=== PATIENT | male | born 1930 | race Caucasian/White ===

== ENCOUNTER 2018-07-02 20:33 | Emergency (ER) | payer BC ==
[~2018-07-02] VITALS: Ht 190.5 cm; Wt 102.1 kg
[~2018-07-02 20:33] MED LIST: ACYCLOVIR 800800 MG PO; BACTRIM DS TAB1 EACH; CENTRUM COMPLE1 EACH PO; CIPROFLOXACIN500 M1 PO; DIGOXIN250 MCG PO; FAMVIR250 MG PO; FLOMAX0.4 MG PO; LEVAQUIN 250 M250 MG PO; LEVAQUIN 500 M500 M2 PO; LO-DOSE ASPIRIN81 M1 PO; MINOCIN100 MG PO; MOMETASONE FURO45 G1 TP; NYSTATIN15 GM TP; OTC CHOLESTEROL MED PO; PREDNISONE50 MG PO; TAMSULOSIN HCL0.4 M1 PO; VICODIN ES TAB1 EACH
[2018-07-02 20:50] VITALS: BP 143/65
[2018-07-02] MEDS ORDERED: CLEOCIN HCL150 MG PO (21:05)
== END 2018-07-02 21:25 | disposition home or self-care (01) ==
LOC: M.ERS 20:33
DX: L03.111 Cellulitis of right axilla (principal); Z88.8 Allergy status to other drugs, medicaments and biological substances; Z85.038 Personal history of other malignant neoplasm of large intestine

== ENCOUNTER 2019-04-02 10:28 | Inpatient (IN) | payer BC ==
[~2019-04-02] VITALS: Ht 190.5 cm; Wt 110.2 kg
[~2019-04-02 10:28] MED LIST changes: +CLEOCIN HCL150 MG PO
[2019-04-02 10:32] VITALS: BP 143/75
[2019-04-02 12:02] LABS: ABSOLUTE BASOPHILS 0.1 thou/uL (0.0-0.2); ABSOLUTE EOSINOPHILS 0.4 thou/uL (0.0-0.7); ABSOLUTE LYMPHOCYTES 1.3 thou/uL (0.8-5.3); ABSOLUTE MONOCYTES 0.6 thou/uL (0.0-1.2); ABSOLUTE NEUTROPHILS 4.1 thou/uL (1.6-8.1); BASOPHILS 0.8 %; EOSINOPHILS 6.2 %; HEMATOCRIT 40.4 % (42.0-52.0); HEMOGLOBIN 13.7 gm/dL (14.0-18.0); LYMPHOCYTES 20.6 %; MCH 33.2 pg (26.0-34.0); MCV 97.6 fL (80.0-100.0); MONOCYTES 8.6 %; MPV 8.4 fl. (7.2-11.1); NUCLEATED RBCS 0 /100WBC; PLATELET COUNT* 145 thou/uL (150-400); POLYS 63.8 %; RBC 4.14 mil/uL (4.50-6.00); RDW-CV 13.9 % (10.5-14.5); WBC 6.4 thou/uL (4.0-11.0)
[2019-04-02 12:21] LABS: APTT 24.6 Seconds (25.0-31.3); INR 1.1; PROTIME 11.1 Seconds (9.20-11.50)
[2019-04-02 12:23] LABS: ANION GAP 7 mmol/L (7-16); BUN 18 mg/dL (7-18); CHLORIDE 106 mmol/L (98-107); CO2 25 mmol/L (21-32); GLUCOSE 90 mg/dL (70-99); POTASSIUM 4.7 mmol/L (3.5-5.1); SODIUM 138 mmol/L (136-145)
[2019-04-02 12:35] LABS: ALBUMIN 3.4 g/dL (3.4-5.0); ALKALINE PHOSPHATASE 67 U/L (46-116); NT-PRO BRAIN NAT PEPTIDE 333 pg/mL (<300); SGOT 28 U/L (15-37); SGPT 29 U/L (30-65); TOTAL BILIRUBIN 0.5 mg/dL (<0.1-1.0); TROPONIN-I LEVEL <0.06 ng/mL (<0.06)
[2019-04-02 13:07] VITALS: BP 150/70
--- NOTE | 2019-04-02 15:03 | EKG ---
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: : 1930 Requested By: Ronaldo West Order Number: [id number] MD: Codey Mccullough Measurements Intervals [place] Rate: 72 P: 13 VT: 151 QRS: 10 QRSD: 91 T: 33 QT: 409 QTc: 448 Interpretive Statements Sinus rhythm Probable left atrial enlargement Compared to ECG 04/02/2017 02:28:15 No significant changes Electronically Signed On 04-02-2019 15:03:05 CDT by Codey Mccullough [email or web address] <ELECTRONICALLY SIGNED> By: Codey Mccullough MD, [facility] 04/02/19 1503 1115 1115 Codey Mccullough MD, [facility] /EPI
[2019-04-02 17:41] VITALS: BP 112/82
[2019-04-02 20:00] VITALS: BP 133/70
[2019-04-03 04:40] LABS: ABSOLUTE EOSINOPHILS 0.5 thou/uL (0.0-0.7); ABSOLUTE LYMPHOCYTES 1.5 thou/uL (0.8-5.3); ABSOLUTE MONOCYTES 0.6 thou/uL (0.0-1.2); ABSOLUTE NEUTROPHILS 3.4 thou/uL (1.6-8.1); BASOPHILS 0.6 %; EOSINOPHILS 7.8 %; HEMATOCRIT 40.8 % (42.0-52.0); HEMOGLOBIN 13.3 gm/dL (14.0-18.0); LYMPHOCYTES 24.9 %; MCH 32.3 pg (26.0-34.0); MCHC 32.7 g/dL (28.0-37.0); MCV 98.8 fL (80.0-100.0); MONOCYTES 9.6 %; MPV 8.5 fl. (7.2-11.1); NUCLEATED RBCS 0 /100WBC; PLATELET COUNT* 142 thou/uL (150-400); POLYS 57.1 %; RBC 4.13 mil/uL (4.50-6.00); RDW-CV 13.8 % (10.5-14.5)
[2019-04-03 04:47] LABS: CALCIUM 8.6 mg/dL (8.5-10.1); CREATININE 1.1 mg/dL (0.6-1.3); POTASSIUM 4.4 mmol/L (3.5-5.1)
[2019-04-03 09:40] VITALS: BP 118/62
[2019-04-03 13:01] VITALS: BP 133/70
[2019-04-03] MEDS ORDERED: XARELTO15 MG PO (13:14)
[2019-04-03 13:19] VITALS: BP 133/70
== END 2019-04-03 14:20 | disposition home or self-care (01) | DRG 300 ==
LOC: M.ERS 10:28 → M.ORTHSURG 11:52 → M.TBA-ER 11:52 → M.ORTHSURG 13:02
PROVIDERS: Family Medicine; ADMIT Internal Medicine
DX: I82.412 Acute embolism and thrombosis of left femoral vein (principal); D68.59 Other primary thrombophilia; I82.432 Acute embolism and thrombosis of left popliteal vein; Z85.038 Personal history of other malignant neoplasm of large intestine; Z95.1 Presence of aortocoronary bypass graft; Z87.891 Personal history of nicotine dependence; Z79.82 Long term (current) use of aspirin; Z79.899 Other long term (current) drug therapy; Z88.8 Allergy status to other drugs, medicaments and biological substances; Z83.3 Family history of diabetes mellitus; Z82.49 Family history of ischemic heart disease and other diseases of the circulatory system

== ENCOUNTER 2020-07-09 08:10 | Emergency (ER) | payer BC ==
[~2020-07-09] VITALS: Ht 190.5 cm; Wt 106.1 kg
[~2020-07-09 08:10] MED LIST changes: +XARELTO15 MG PO
[2020-07-09 08:46] LABS: URINE BILIRUBIN NEGATIVE (Negative); URINE BLOOD 3+ (Negative); URINE CLARITY CLEAR; URINE COLOR YELLOW; URINE GLUCOSE-RANDOM NEGATIVE (Negative); URINE KETONES NEGATIVE (Negative); URINE LEUKOCYTES-REFLEX NEGATIVE (Negative); URINE NITRITE-REFLEX NEGATIVE (Negative); URINE PROTEIN NEGATIVE (Negative); URINE SPECIFIC GRAVITY >= 1.030 (1.005-1.030); URINE UROBILINOGEN 0.2 E.U./dl (0.2-1.0)
[2020-07-09 08:56] LABS: ABSOLUTE EOSINOPHILS 0.2 thou/uL (0.0-0.7); ABSOLUTE MONOCYTES 0.4 thou/uL (0.0-1.2); ABSOLUTE NEUTROPHILS 3.8 thou/uL (1.6-8.1); BASOPHILS 0.7 %; HEMATOCRIT 42.4 % (42.0-52.0); HEMOGLOBIN 14.4 gm/dL (14.0-18.0); LYMPHOCYTES 18.1 %; MCH 32.9 pg (26.0-34.0); MCHC 33.9 g/dL (28.0-37.0); MCV 97.3 fL (80.0-100.0); MONOCYTES 7.7 %; MPV 8.1 fl. (7.2-11.1); NUCLEATED RBCS 0 /100WBC; PLATELET COUNT* 142 thou/uL (150-400); POLYS 70.5 %; RBC 4.36 mil/uL (4.50-6.00); RDW-CV 13.7 % (10.5-14.5); WBC 5.3 thou/uL (4.0-11.0)
[2020-07-09 09:07] LABS: CALCIUM 8.5 mg/dL (8.5-10.1); CREATININE 1.1 mg/dL (0.6-1.3); POTASSIUM 4.2 mmol/L (3.5-5.1)
[2020-07-09 09:11] LABS: MUCUS 0-3 Light strn/LPF (None Seen); SQUAMOUS 0-3 Few /LPF (0-3); URINE WBC-REFLEX 0-5 Rare /HPF (0-5)
[2020-07-09 09:12] LABS: CASTS None Seen /LPF (None Seen); CRYSTALS None Seen /LPF (None Seen)
[2020-07-09 09:12] LABS: ALBUMIN 3.3 g/dL (3.4-5.0); TOTAL BILIRUBIN 0.6 mg/dL (<0.1-1.0)
[2020-07-09] MEDS ORDERED: IBUPROFEN 800800 MG PO (10:20)
[2020-07-09] MEDS ORDERED: NORCO 5-325 TA1 EAC2 PO (10:20)
[2020-07-09] MEDS ORDERED: CIPROFLOXACIN500 M1 PO (10:20)
[2020-07-09] MEDS ORDERED: FLOMAX0.4 MG PO (10:20)
[2020-07-09 10:52] VITALS: BP 144/70
--- NOTE | 2020-07-10 15:09 | EKG ---
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
== END 2020-07-09 10:53 | disposition home or self-care (01) ==
LOC: M.ERS 08:10
PROVIDERS: Family Medicine
DX: N20.0 Calculus of kidney (principal); Z87.891 Personal history of nicotine dependence; Z95.1 Presence of aortocoronary bypass graft; Z86.718 Personal history of other venous thrombosis and embolism; Z85.038 Personal history of other malignant neoplasm of large intestine; Z88.8 Allergy status to other drugs, medicaments and biological substances

== ENCOUNTER 2020-08-18 17:14 | Emergency (ER) | payer BC ==
[~2020-08-18] VITALS: Ht 190.5 cm; Wt 104.3 kg
[~2020-08-18 17:14] MED LIST changes: +IBUPROFEN 800800 MG PO; +NORCO 5-325 TA1 EAC2 PO
[2020-08-18 17:32] VITALS: BP 164/68
[2020-08-18] MEDS ORDERED: CENTRUM ULTRA1 EAC1 PO (17:34)
[2020-08-18] MEDS ORDERED: ASA81BEC PO (17:34)
== END 2020-08-18 19:18 | disposition home or self-care (01) ==
LOC: M.ERS 17:14
DX: I80.01 Phlebitis and thrombophlebitis of superficial vessels of right lower extremity (principal); Z95.1 Presence of aortocoronary bypass graft; Z87.891 Personal history of nicotine dependence; Z79.899 Other long term (current) drug therapy; Z79.82 Long term (current) use of aspirin; Z91.048 Other nonmedicinal substance allergy status

== ENCOUNTER 2020-12-12 18:27 | Emergency (ER) | payer BC ==
[~2020-12-12] VITALS: Ht 190.5 cm; Wt 99.8 kg
[~2020-12-12 18:27] MED LIST changes: +ASA81BEC PO; +CENTRUM ULTRA1 EAC1 PO
[2020-12-12] MEDS ORDERED: CENTANY30 GM TOP (19:37)
[2020-12-12] MEDS ORDERED: DOXYCYCLINE 10100 MG PO (19:37)
[2020-12-12 19:44] VITALS: BP 141/54
== END 2020-12-12 19:45 | disposition home or self-care (01) ==
LOC: M.ERS 18:27
DX: S80.811A Abrasion, right lower leg, initial encounter (principal); L08.9 Local infection of the skin and subcutaneous tissue, unspecified; Z87.891 Personal history of nicotine dependence; Z88.8 Allergy status to other drugs, medicaments and biological substances; Z95.1 Presence of aortocoronary bypass graft; Z85.038 Personal history of other malignant neoplasm of large intestine; Z86.718 Personal history of other venous thrombosis and embolism; W18.39XA Other fall on same level, initial encounter; Y93.89 Activity, other specified; Y92.89 Other specified places as the place of occurrence of the external cause; Y99.8 Other external cause status

== ENCOUNTER 2020-12-20 12:13 | Emergency (ER) | payer BC ==
[~2020-12-20] VITALS: Ht 190.5 cm; Wt 99.8 kg
[~2020-12-20 12:13] MED LIST changes: +CENTANY30 GM TOP; +DOXYCYCLINE 10100 MG PO
[2020-12-20] MEDS ORDERED: DOXYCYCLINE 10100 MG PO (13:47)
[2020-12-20 13:58] VITALS: BP 114/47
== END 2020-12-20 13:59 | disposition home or self-care (01) ==
LOC: M.ERS 12:13
DX: S81.811D Laceration without foreign body, right lower leg, subsequent encounter (principal); Z79.82 Long term (current) use of aspirin; Z86.718 Personal history of other venous thrombosis and embolism; Z95.1 Presence of aortocoronary bypass graft; Z85.038 Personal history of other malignant neoplasm of large intestine; X58.XXXD Exposure to other specified factors, subsequent encounter

== ENCOUNTER 2021-01-02 18:30 | Emergency (ER) | payer BC ==
[~2021-01-02] VITALS: Ht 190.5 cm; Wt 99.8 kg
[2021-01-02 19:52] VITALS: BP 121/72
== END 2021-01-02 19:52 | disposition home or self-care (01) ==
LOC: M.ERS 18:30
DX: S81.811D Laceration without foreign body, right lower leg, subsequent encounter (principal); G62.9 Polyneuropathy, unspecified; Z87.891 Personal history of nicotine dependence; Z79.82 Long term (current) use of aspirin; Z79.899 Other long term (current) drug therapy; Z95.1 Presence of aortocoronary bypass graft; Z86.718 Personal history of other venous thrombosis and embolism; Z85.038 Personal history of other malignant neoplasm of large intestine

== ENCOUNTER 2021-07-02 01:31 | Inpatient (IN) | payer BC ==
[~2021-07-02] VITALS: Ht 190.5 cm; Wt 112.9 kg
[2021-07-02 01:49] VITALS: BP 130/67
[2021-07-02 02:11] LABS: INFLUENZA A ANTIGEN Negative (Negative); INFLUENZA B ANTIGEN Negative (Negative)
[2021-07-02 02:14] LABS: ABSOLUTE EOSINOPHILS 0.1 thou/uL (0.0-0.7); ABSOLUTE LYMPHOCYTES 0.7 thou/uL (0.8-5.3); ABSOLUTE MONOCYTES 0.5 thou/uL (0.0-1.2); ABSOLUTE NEUTROPHILS 6.1 thou/uL (1.6-8.1); BASOPHILS 0.5 %; EOSINOPHILS 0.8 %; HEMATOCRIT 40.1 % (42.0-52.0); HEMOGLOBIN 13.7 gm/dL (14.0-18.0); MCH 32.8 pg (26.0-34.0); MCHC 34.2 g/dL (28.0-37.0); MCV 95.7 fL (80.0-100.0); MONOCYTES 6.7 %; MPV 8.1 fl. (7.2-11.1); NUCLEATED RBCS 0 /100WBC; PLATELET COUNT* 170 thou/uL (150-400); RBC 4.19 mil/uL (4.50-6.00); RDW-CV 13.3 % (10.5-14.5); WBC 7.3 thou/uL (4.0-11.0)
[2021-07-02 02:21] LABS: CALCIUM 8.9 mg/dL (8.5-10.1); CREATININE 1.1 mg/dL (0.6-1.3); POTASSIUM 4.5 mmol/L (3.5-5.1)
[2021-07-02 02:25] LABS: TOTAL BILIRUBIN 0.7 mg/dL (<0.1-1.0); TOTAL PROTEIN 7.1 g/dL (6.4-8.2)
[2021-07-02 07:09] VITALS: BP 128/74
[2021-07-02 08:00] VITALS: BP 119/66
[2021-07-02 11:30] VITALS: BP 122/54
[2021-07-02 17:48] VITALS: BP 132/95
[2021-07-02 20:00] VITALS: BP 130/48
[2021-07-03] VITALS: BP 112/50
[2021-07-03 04:00] VITALS: BP 141/78
[2021-07-03 05:57] LABS: HEMATOCRIT 40.2 % (42.0-52.0); HEMOGLOBIN 13.8 gm/dL (14.0-18.0); MCH 32.9 pg (26.0-34.0); MCHC 34.2 g/dL (28.0-37.0); MCV 96.1 fL (80.0-100.0); NUCLEATED RBCS 0 /100WBC; PLATELET COUNT* 182 thou/uL (150-400); RBC 4.18 mil/uL (4.50-6.00); RDW-CV 13.4 % (10.5-14.5); WBC 8.4 thou/uL (4.0-11.0)
[2021-07-03 06:33] LABS: ALBUMIN 2.8 g/dL (3.4-5.0); CALCIUM 8.7 mg/dL (8.5-10.1); POTASSIUM 4.2 mmol/L (3.5-5.1); TOTAL BILIRUBIN 0.7 mg/dL (<0.1-1.0); TOTAL PROTEIN 6.8 g/dL (6.4-8.2)
[2021-07-03 07:23] LABS: ABSOLUTE LYMPHOCYTES 0.7 thou/uL (0.8-5.3); ABSOLUTE MONOCYTES 0.5 thou/uL (0.0-1.2); ABSOLUTE NEUTROPHILS 7.2 thou/uL (1.6-8.1)
[2021-07-03 07:24] LABS: PLATELET ESTIMATE ADEQUATE
[2021-07-03 08:00] VITALS: BP 148/73
[2021-07-03 10:10] LABS: ABSOLUTE LYMPHOCYTES 0.4 thou/uL (0.8-5.3); ABSOLUTE MONOCYTES 0.4 thou/uL (0.0-1.2); BASOPHILS 0.2 %; EOSINOPHILS 0.1 %; HEMATOCRIT 38.7 % (42.0-52.0); HEMOGLOBIN 13.3 gm/dL (14.0-18.0); LYMPHOCYTES 4.2 %; MCH 32.8 pg (26.0-34.0); MCHC 34.4 g/dL (28.0-37.0); MCV 95.2 fL (80.0-100.0); MONOCYTES 3.6 %; MPV 7.9 fl. (7.2-11.1); NUCLEATED RBCS 0 /100WBC; PLATELET COUNT* 179 thou/uL (150-400); POLYS 91.9 %; RBC 4.06 mil/uL (4.50-6.00); RDW-CV 13.1 % (10.5-14.5); WBC 9.8 thou/uL (4.0-11.0)
[2021-07-03 10:23] LABS: ALBUMIN 2.6 g/dL (3.4-5.0); CALCIUM 8.3 mg/dL (8.5-10.1); POTASSIUM 3.9 mmol/L (3.5-5.1); TOTAL BILIRUBIN 0.8 mg/dL (<0.1-1.0); TOTAL PROTEIN 6.4 g/dL (6.4-8.2)
[2021-07-03 12:10] VITALS: BP 101/58
--- NOTE | 2021-07-03 12:15 | EKG ---
[place] [address] ELECTROCARDIOGRAM REPORT Name: TANYA KRAUS Room: [address] ADM IN ..#: [id number] Admission: 07/02/21 Attend Phys: Hawk Claros, Discharge: Date of : 34 Date of Service: 07/02/21 0157 Report #: [id number] THIS REPORT FOR: //name// [facility] ED Test Date: 2021-07-02 Test Time: 01:57:52 Pat Name: TANYA KRAUS Department: Room: [facility] Gender: M E Commerce Architect: [facility] : 1930 Requested By: Anayeli Diallo Order Number: [id number] MD: Prosper Tuttle Measurements Intervals [place] Rate: 98 P: 44 UT: 148 QRS: 23 QRSD: 79 T: 18 QT: 334 QTc: 427 Interpretive Statements Sinus rhythm Probable left atrial enlargement Borderline low voltage, extremity leads Compared to ECG 07/09/2020 08:40:32 No significant changes Electronically Signed On 07-03-2021 12:15:29 STRAIGHT LINE PRESS SETTER by Prosper Tuttle [email or web address] <ELECTRONICALLY SIGNED> By: Prosper Tuttle MD, [facility] 07/03/21 1215 0157 015 Prosper Tuttle MD, [facility] /EPI
[2021-07-03 16:04] VITALS: BP 118/85
[2021-07-03 20:01] VITALS: BP 120/52
[2021-07-04] VITALS (7 sets, daily range): BP systolic 121–157; BP diastolic 57–80
[2021-07-05] VITALS (7 sets, daily range): BP systolic 112–150; BP diastolic 60–86
[2021-07-05 10:56] LABS: HEMATOCRIT 40.9 % (42.0-52.0); HEMOGLOBIN 13.9 gm/dL (14.0-18.0); MCH 32.2 pg (26.0-34.0); MCV 94.6 fL (80.0-100.0); MPV 8.6 fl. (7.2-11.1); RBC 4.33 mil/uL (4.50-6.00); RDW-CV 13.4 % (10.5-14.5); WBC 12.4 thou/uL (4.0-11.0)
[2021-07-05 11:18] LABS: POTASSIUM 3.9 mmol/L (3.5-5.1)
[2021-07-05 11:19] LABS: CALCIUM 8.4 mg/dL (8.5-10.1); CREATININE 1.2 mg/dL (0.6-1.3); MAGNESIUM 2.2 mg/dL (1.8-2.4)
--- NOTE | 2021-07-05 11:51 | EKG ---
[place] [address] ELECTROCARDIOGRAM REPORT Name: TANYA KRAUS Room: [address] ADM IN M.R.#: [id number] Admission: 07/02/21 Attend Phys: Hawk Claros, Discharge: Date of : 34 Date of Service: 07/05/21 0633 Report #: [id number] THIS REPORT FOR: //name// [facility] Test Date: 2021-07-05 Test Time: 06:33:30 Pat Name: TANYA KRAUS Department: Room: [address] Gender: M Tire Worker: THOWARD3 : 1930 Requested By: Prosper Tuttle Order Number: [id number] Armond MD: Gopal Orosco Measurements Intervals [place] Rate: 130 P: NE: QRS: -42 QRSD: 80 T: -6 QT: 285 QTc: 419 Interpretive Statements Atrial fibrillation Abnormal R-wave progression, late transition Inferior infarct, old, possible Compared to ECG 07/02/2021 01:57:52 Myocardial infarct finding now present Sinus rhythm no longer present Electronically Signed On 07-05-2021 11:51:20 INVESTMENT BANKING MANAGER by Gopal Orosco [email or web address] <ELECTRONICALLY SIGNED> By: Gopal Orosco MD, FACC 07/05/21 1151 0633 0633 Gopal Orosco MD, FACC /EPI
[2021-07-05 17:22] LABS: BE -2.7 mmol/L (-2 to +3); PCO2 25.7 mmHg (35.0-45.0); PO2 74.2 mmHg (75.0-100.0); pH 7.481 (7.340-7.450)
[2021-07-06] VITALS: BP 140/94
[2021-07-06 04:00] VITALS: BP 137/62
[2021-07-06 04:59] VITALS: BP 121/55
[2021-07-06 11:30] VITALS: BP 115/53
[2021-07-06 12:44] LABS: EOSINOPHILS 0.1 %; MPV 8.3 fl. (7.2-11.1); NUCLEATED RBCS 0 /100WBC
[2021-07-06 12:45] VITALS: BP 104/32
[2021-07-06 12:45] LABS: ABSOLUTE LYMPHOCYTES 0.6 thou/uL (0.8-5.3); ABSOLUTE MONOCYTES 0.3 thou/uL (0.0-1.2); ABSOLUTE NEUTROPHILS 10.7 thou/uL (1.6-8.1); HEMATOCRIT 41.7 % (42.0-52.0); HEMOGLOBIN 14.1 gm/dL (14.0-18.0); LYMPHOCYTES 4.9 %; MCH 32.1 pg (26.0-34.0); MCHC 33.8 g/dL (28.0-37.0); MCV 94.9 fL (80.0-100.0); MONOCYTES 2.7 %; PLATELET COUNT* 289 thou/uL (150-400); POLYS 92.3 %; RBC 4.39 mil/uL (4.50-6.00); RDW-CV 13.8 % (10.5-14.5); WBC 11.6 thou/uL (4.0-11.0)
[2021-07-06 12:57] LABS: CALCIUM 8.2 mg/dL (8.5-10.1); CREATININE 1.2 mg/dL (0.6-1.3); POTASSIUM 4.1 mmol/L (3.5-5.1); TOTAL BILIRUBIN 0.5 mg/dL (<0.1-1.0); TOTAL PROTEIN 6.2 g/dL (6.4-8.2)
--- NOTE | 2021-07-06 14:22 | 2DMMODE ---
[place] [address] 2 D/M-MODE ECHOCARDIOGRAM Name: TANYA KRAUS Room: [address] IN [facility]#: [id number] Admission: 07/02/21 Attend Phys: Hawk Claros, Discharge: Date of : 32 Date of Service: 07/06/21 1422 Report #: [id number] THIS REPORT FOR: cc: Prosper Tuttle MD, FACC, David R. MD FACC Blick, David R. MD FACC ~ APPROVED REPORT Study performed: 07/06/2021 11:54:00 EXAM: Comprehensive 2D, Doppler, and color-flow Echocardiogram Patient Location: In-Patient Room #: 104 Status: routine BSA: 2.31 HR: 125 bpm BP: 121/55 mmHg Rhythm: Atrial Fibrillation Other Information Study Quality: Adequate Indications Atrial Fibrillation 2D Dimensions IVSd: 15.02 (7-11mm) LVOT Diam: 21.86 (18-24mm) LVDd: 43.41 mm PWd: 13.13 (7-11mm) Ascending Ao: 39.08 (22-36mm) LVDs: 30.34 (25-40mm) Aortic Root: 38.14 mm Aortic Valve AoV Peak Jeronimo.: 1.41 m/s AO Peak Gr.: 7.97 mmHg LVOT Max P.37 mmHg AO Mean Gr.: 4.44 mmHg LVOT Mean P.96 mmHg LVOT Max V: 1.16 m/s AO V2 VTI: 18.45 cm LVOT Mean V: 0.81 m/s MIKEL (VTI): 2.59 cm2 LVOT V1 VTI: 12.76 cm Pulmonary Valve PV Peak Jeronimo.: 1.04 m/s PV Peak Gr.: 4.29 [place] [address] 2 D/M-MODE ECHOCARDIOGRAM Name: TANYA KRAUS Room: [address] IN [facility]#: [id number] Admission: 07/02/21 Attend Phys: Hawk Claros, Discharge: Date of : 32 Date of Service: 07/06/21 1422 Report #: [id number] RAP Estimate: 5.00 mmHg TR Peak Gr.: 21.65 mmHg RVSP: 26.00 mmHg PA Pressure: 26.00 mmHg Left Ventricle The left ventricle is normal size. There is normal LV segmental wall motion. Mild concentric left ventricular hypertrophy. Left ventricular systolic function is normal. The left ventricular ejection fraction is within the normal range. LVEF is 60-65%. This study is not technically sufficient to allow evaluation of the LV diastolic function due to atrial fibrillation. Right Ventricle The right ventricle is normal size. The right ventricular systolic function is normal. Pacemaker lead is present in the right ventricle. Atria The left atrium size is normal. The right atrium size is normal. Aortic Valve Mild aortic valve sclerosis. No aortic regurgitation is present. There is no aortic valvular stenosis. Mitral Valve The mitral valve is normal in structure. There is no mitral valve regurgitation noted. No evidence of mitral valve stenosis. Tricuspid Valve The tricuspid valve is normal in structure. Trace tricuspid regurgitation. No pulmonary hypertension. Pulmonic Valve The pulmonary valve is normal in structure. Trace pulmonic regurgitation. Great Vessels Aortic root is mildly dilated. IVC is normal in size and collapses >50% with inspiration. Pericardium There is no pericardial effusion. <Conclusion> Mild concentric [place] [address] 2 D/M-MODE ECHOCARDIOGRAM Name: TANYA KRAUS Room: [address] IN [facility]#: [id number] Admission: 07/02/21 Attend Phys: Hawk Claros, Discharge: Date of : 34 Date of Service: 07/06/211421 Report #: [id number] LVEF is 60-65%. Mild aortic valve sclerosis. <ELECTRONICALLY SIGNED> By: Prosper Tuttle MD, [facility] 07/06/211421 21 1422 Prosper Tuttle MD, FACC /INF
[2021-07-06 15:42] VITALS: BP 108/57
[2021-07-06 16:40] LABS: URINE BILIRUBIN NEGATIVE (Negative); URINE BLOOD NEGATIVE (Negative); URINE CLARITY CLEAR; URINE COLOR YELLOW; URINE GLUCOSE-RANDOM NEGATIVE (Negative); URINE KETONES NEGATIVE (Negative); URINE LEUKOCYTES NEGATIVE (Negative); URINE NITRITE NEGATIVE (Negative); URINE PROTEIN TRACE (Negative); URINE SPECIFIC GRAVITY >= 1.030 (1.005-1.030); URINE UROBILINOGEN 0.2 E.U./dl (0.2-1.0)
[2021-07-07] VITALS (8 sets, daily range): BP systolic 91–1254; BP diastolic 51–74
[2021-07-07 03:09] LABS: BE -3.6 mmol/L (-2 to +3); PCO2 36.3 mmHg (35.0-45.0); pH 7.378 (7.340-7.450)
[2021-07-07 04:55] LABS: HEMATOCRIT 44.6 % (42.0-52.0); MCH 32.3 pg (26.0-34.0); MCHC 33.7 g/dL (28.0-37.0); MCV 95.8 fL (80.0-100.0); MPV 8.7 fl. (7.2-11.1); RBC 4.66 mil/uL (4.50-6.00); RDW-CV 13.8 % (10.5-14.5)
[2021-07-07 05:03] LABS: ALBUMIN 2.2 g/dL (3.4-5.0); CALCIUM 8.7 mg/dL (8.5-10.1); CREATININE 1.3 mg/dL (0.6-1.3); MAGNESIUM 2.6 mg/dL (1.8-2.4); POTASSIUM 4.5 mmol/L (3.5-5.1); TOTAL BILIRUBIN 0.7 mg/dL (<0.1-1.0); TOTAL PROTEIN 6.2 g/dL (6.4-8.2)
--- NOTE | 2021-07-07 12:00 | EKG ---
[place] [address] ELECTROCARDIOGRAM REPORT Name: TANYA KRAUS Room: [address] ADM IN M.R.#: [id number] Admission: 07/02/21 Attend Phys: Hawk Claros, Discharge: Date of : 32 Date of Service: 07/07/21 0421 Report #: [id number] THIS REPORT FOR: //name// [facility] Test Date: 2021-07-07 Test Time: 04:21:49 Pat Name: TANYA KRAUS Department: Room: [address] Gender: M Assembly Associate: BXIONG : 1930 Requested By: Prosper Tuttle Order Number: [id number] Armond MD: Prosper Tuttle Measurements Intervals [place] Rate: 137 P: OR: QRS: -2 QRSD: 80 T: 8 QT: 326 QTc: 493 Interpretive Statements Atrial fibrillation with rapid V-rate Inferior infarct, 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
[2021-07-08] VITALS (12 sets, daily range): BP systolic 78–144; BP diastolic 38–83
[2021-07-08 12:41] LABS: BE -4.4 mmol/L (-2 to +3); PCO2 VENOUS 32.5 mmHg (41.0-51.0); PO2 VENOUS 62.7 mmHg (35.0-45.0)
[2021-07-08 17:48] LABS: HEMATOCRIT 42.5 % (42.0-52.0); MCH 31.7 pg (26.0-34.0); MCHC 32.9 g/dL (28.0-37.0); MCV 96.3 fL (80.0-100.0); MPV 8.4 fl. (7.2-11.1); NUCLEATED RBCS 0 /100WBC; PLATELET COUNT* 302 thou/uL (150-400); RBC 4.42 mil/uL (4.50-6.00); RDW-CV 13.7 % (10.5-14.5); WBC 12.6 thou/uL (4.0-11.0)
[2021-07-08 18:03] LABS: ALBUMIN 1.7 g/dL (3.4-5.0); CALCIUM 8.6 mg/dL (8.5-10.1); CREATININE 1.5 mg/dL (0.6-1.3); POTASSIUM 4.8 mmol/L (3.5-5.1); TOTAL BILIRUBIN 0.6 mg/dL (<0.1-1.0); TOTAL PROTEIN 6.2 g/dL (6.4-8.2)
[2021-07-08 18:12] LABS: ABSOLUTE LYMPHOCYTES 0.6 thou/uL (0.8-5.3); ABSOLUTE MONOCYTES 0.4 thou/uL (0.0-1.2); ABSOLUTE NEUTROPHILS 11.6 thou/uL (1.6-8.1); ATYPICAL LYMPHS 2 %
[2021-07-08 18:13] LABS: PLATELET ESTIMATE ADEQUATE
[2021-07-09] VITALS (108 sets, daily range): BP systolic 76–154; BP diastolic 39–81
[2021-07-09 11:41] LABS: HEMATOCRIT 43.8 % (42.0-52.0); HEMOGLOBIN 14.5 gm/dL (14.0-18.0); MCH 31.6 pg (26.0-34.0); MCV 95.6 fL (80.0-100.0); RBC 4.58 mil/uL (4.50-6.00); RDW-CV 14.1 % (10.5-14.5); WBC 20.5 thou/uL (4.0-11.0)
[2021-07-09 11:58] LABS: INR 1.2; PROTIME 12.7 Seconds (9.20-11.50)
[2021-07-09 12:01] LABS: CALCIUM 8.8 mg/dL (8.5-10.1); CREATININE 2.1 mg/dL (0.6-1.3); MAGNESIUM 3.2 mg/dL (1.8-2.4); POTASSIUM 4.5 mmol/L (3.5-5.1)
[2021-07-09 17:56] LABS: BE -10.7 mmol/L (-2 to +3); PCO2 33.2 mmHg (35.0-45.0); PO2 80.5 mmHg (75.0-100.0)
[2021-07-09 17:59] LABS: pH 7.271 (7.340-7.450)
[2021-07-09 20:04] LABS: ABSOLUTE BASOPHILS 0.1 thou/uL (0.0-0.2); ABSOLUTE LYMPHOCYTES 0.3 thou/uL (0.8-5.3); ABSOLUTE MONOCYTES 0.2 thou/uL (0.0-1.2); ABSOLUTE NEUTROPHILS 20.5 thou/uL (1.6-8.1); BASOPHILS 0.5 %; EOSINOPHILS 0.1 %; HEMATOCRIT 42.3 % (42.0-52.0); HEMOGLOBIN 14.2 gm/dL (14.0-18.0); LYMPHOCYTES 1.3 %; MCH 32.3 pg (26.0-34.0); MCHC 33.6 g/dL (28.0-37.0); MCV 96.1 fL (80.0-100.0); MONOCYTES 0.9 %; MPV 8.4 fl. (7.2-11.1); NUCLEATED RBCS 0 /100WBC; PLATELET COUNT* 440 thou/uL (150-400); POLYS 97.2 %; RDW-CV 14.1 % (10.5-14.5); WBC 21.1 thou/uL (4.0-11.0)
[2021-07-09 20:14] LABS: APTT 36.7 Seconds (25.0-31.3); INR 1.2; PROTIME 12.5 Seconds (9.20-11.50)
[2021-07-10] VITALS (75 sets, daily range): BP systolic 78–150; BP diastolic 41–95
[2021-07-10 11:53] LABS: BE -7.9 mmol/L (-2 to +3); PCO2 31.4 mmHg (35.0-45.0)
[2021-07-10 12:01] LABS: PO2 57.4 mmHg (75.0-100.0)
[2021-07-10 13:07] LABS: ALBUMIN 1.8 g/dL (3.4-5.0); CALCIUM 8.1 mg/dL (8.5-10.1); CREATININE 2.4 mg/dL (0.6-1.3); MAGNESIUM 3.1 mg/dL (1.8-2.4); POTASSIUM 4.7 mmol/L (3.5-5.1); TOTAL BILIRUBIN 0.4 mg/dL (<0.1-1.0); TOTAL PROTEIN 6.1 g/dL (6.4-8.2)
[2021-07-10 13:17] LABS: ABSOLUTE BASOPHILS 0.1 thou/uL (0.0-0.2); ABSOLUTE EOSINOPHILS 0.3 thou/uL (0.0-0.7); ABSOLUTE LYMPHOCYTES 0.2 thou/uL (0.8-5.3); ABSOLUTE NEUTROPHILS 17.9 thou/uL (1.6-8.1); BASOPHILS 0.6 %; EOSINOPHILS 1.5 %; HEMOGLOBIN 12.9 gm/dL (14.0-18.0); LYMPHOCYTES 1.3 %; MCHC 33.2 g/dL (28.0-37.0); MCV 96.5 fL (80.0-100.0); MONOCYTES 0.2 %; MPV 8.1 fl. (7.2-11.1); NUCLEATED RBCS 0 /100WBC; PLATELET COUNT* 385 thou/uL (150-400); POLYS 96.4 %; RBC 4.04 mil/uL (4.50-6.00); RDW-CV 14.1 % (10.5-14.5); WBC 18.5 thou/uL (4.0-11.0)
[2021-07-10 18:02] LABS: BE -6.4 mmol/L (-2 to +3); PCO2 37.6 mmHg (35.0-45.0); PO2 71.2 mmHg (75.0-100.0); pH 7.322 (7.340-7.450)
[2021-07-10 20:50] LABS: CALCIUM 7.8 mg/dL (8.5-10.1); CREATININE 2.4 mg/dL (0.6-1.3); POTASSIUM 4.3 mmol/L (3.5-5.1)
[2021-07-11] VITALS (59 sets, daily range): BP systolic 89–163; BP diastolic 42–122
[2021-07-11 03:19] LABS: HEMATOCRIT 31.1 % (42.0-52.0); MCH 32.1 pg (26.0-34.0); MCHC 33.7 g/dL (28.0-37.0); MCV 95.3 fL (80.0-100.0); MPV 8.2 fl. (7.2-11.1); NUCLEATED RBCS 0 /100WBC; RBC 3.27 mil/uL (4.50-6.00); RDW-CV 14.1 % (10.5-14.5); WBC 11.9 thou/uL (4.0-11.0)
[2021-07-11 03:26] LABS: HEMOGLOBIN 10.5 gm/dL (14.0-18.0); PLATELET COUNT* 298 thou/uL (150-400)
[2021-07-11 03:29] LABS: ALBUMIN 2.6 g/dL (3.4-5.0); CALCIUM 7.9 mg/dL (8.5-10.1); CREATININE 2.6 mg/dL (0.6-1.3); MAGNESIUM 3.2 mg/dL (1.8-2.4); POTASSIUM 4.2 mmol/L (3.5-5.1); TOTAL BILIRUBIN 0.5 mg/dL (<0.1-1.0); TOTAL PROTEIN 5.8 g/dL (6.4-8.2)
[2021-07-11 06:42] LABS: ABSOLUTE LYMPHOCYTES 0.6 thou/uL (0.8-5.3); ABSOLUTE MONOCYTES 0.5 thou/uL (0.0-1.2); ABSOLUTE NEUTROPHILS 10.8 thou/uL (1.6-8.1)
[2021-07-11 06:43] LABS: HYPOCHROMASIA 1+; PLATELET ESTIMATE ADEQUATE
[2021-07-11 08:27] LABS: BE -5.2 mmol/L (-2 to +3); PCO2 35.5 mmHg (35.0-45.0)
[2021-07-11 08:31] LABS: PO2 59.5 mmHg (75.0-100.0)
[2021-07-11 14:07] LABS: BE -6.4 mmol/L (-2 to +3); PCO2 33.7 mmHg (35.0-45.0); pH 7.353 (7.340-7.450)
[2021-07-11 16:22] LABS: CALCIUM 7.8 mg/dL (8.5-10.1); CREATININE 2.5 mg/dL (0.6-1.3); MAGNESIUM 3.1 mg/dL (1.8-2.4); POTASSIUM 4.1 mmol/L (3.5-5.1)
--- NOTE | 2021-07-11 22:17 | CON ---
[address] [address] CONSULTATION Name: TANYA KRAUS Room: [address] IN M.R.#: [id number] Admission: 07/02/21 Attend Phys: Hawk Claros MD Discharge: Date of : 32 Report #: [id number] THIS REPORT FOR: cc: Prosper Tuttle MD [facility] Prosper Tuttle MD [facility] Gabriel Dueñas MD ~ DATE OF CONSULTATION: 07/09/2021 REQUESTING PHYSICIAN: Hawk Claros MD HISTORY OF PRESENT ILLNESS: An 89-year-old gentleman. There is an extensive history of smoking in the past. I am, however, not aware of a previous history of COPD. The patient is not reported to be vaccinated for COVID-19. At this time, he is here with acute hypoxemic respiratory failure secondary to COVID-19. He also has acute pulmonary emboli. Currently, he is on a BiPAP. He is on 100% FiO2, barely maintaining O2 saturation in the low 90s. He has been significantly tachypneic. Respiratory rate has been in the range of upper 40s to 60s. He is on a Precedex drip. He is on low-dose Levophed. The patient is obtunded on exam. He has also had AFib with RVR during this admission. Rate, however, is under control with medications per the Cardiology Service. The patient currently is in acute renal failure. His creatinine at baseline is 1.0, it has gone up to 2.1. He is obtunded, unable to provide a further history or review of systems. PAST MEDICAL HISTORY: DVTs, coronary artery disease, status post CABG, colon cancer, left knee fracture. He has a recent echo, shows a left ventricular ejection fraction normal at 60-65% with a pulmonary artery systolic of 26. SOCIAL HISTORY: There is an extensive history of smoking in the past, discontinued now. Occasional alcohol intake. No known history of illegal drug use. CURRENT MEDICATIONS: List in [facility] reviewed. HOME MEDICATIONS: List in [facility] reviewed. ALLERGIES: ADHESIVE TAPE. FAMILY HISTORY: No pertinent family history. PHYSICAL EXAMINATION: VITAL SIGNS: He is obtunded. He is on Precedex. He is on low-dose Levophed. He was breathing at a rate of 60-65 at the time of my evaluation. He had a heart rate of 100, but he is on rate control medications. Blood pressure is 112/58. He is saturating 92%. He is afebrile with a temperature of 36.1. [place] [address] CONSULTATION Name: TANYA KRAUS Room: [address] IN [facility].#: [id number] Admission: 07/02/21 Attend Phys: Hawk Claros MD Discharge: Date of : 32 Report #: [id number] HEENT: Head is normocephalic and atraumatic. NECK: Does not show raised JVP. CHEST: Breath sounds bilaterally equal. No added sounds. There is accessory muscle use. There is significant tachypnea. HEART: Regular. There is no murmur. ABDOMEN: Soft and nontender. EXTREMITIES: Lower extremities, no edema, no calf tenderness. SKIN: Dry and intact. NEUROLOGICAL: Did move all extremities to ____. IMAGING: Last available chest x-ray from 2 days ago does show extensive bilateral infiltrates consistent with COVID-19. CTA chest also showed the same in addition to ____ pulmonary emboli. ASSESSMENT/PLAN: 1. Acute hypoxemic respiratory failure secondary to COVID-19. The patient is noted to be do not resuscitate and do not intubate; otherwise, I would have intubated him already. He is significantly tachypneic on BiPAP and at this time, it appears unlikely that he will survive unless endotracheally intubated and even if endotracheally intubated, his prognosis in fact will be very poor. I understand that the family is discussing comfort measures. Meanwhile, we will continue with Precedex. If he does remain for active measures, then I will do a blood gas, possibly a venous blood gas to see where we stand. We will do a stat chest x-ray now. 2. COVID-19. Ordered dexamethasone earlier. If active measures are to be continued, then I will give him remdesivir as well while watching his renal function. We will follow LFTs, Actemra is not available. 3. Pulmonary infiltrates. He is on cefepime. I did not add additional antibiotics at this time. If he remains for active measures, we will review and consider. Primarily, he appears to have infiltrates secondary to COVID-19. 4. Acute pulmonary emboli. There is significant increase in his creatinine. Therefore, I would switch his Lovenox over to IV heparin. 5. Acute renal failure. Albumin is 1.7. Some administration of albumin can be considered, but he is high risk for desaturation with albumin. 6. Atrial fibrillation. Cardiology Service is managing. 7. Extensive history of smoking. There is no documented history of chronic obstructive pulmonary disease. He is on nebulized bronchodilators. He is receiving steroids as above. I will give him an additional dose of Solu-Medrol now as well. See further discussion as above. 8. Gastrointestinal prophylaxis. We will add Pepcid. 9. Hypotension. He is on norepinephrine. If he remains tachycardic, I will switch this over to phenylephrine. The patient is critically ill [place] [address] CONSULTATION Name: TANYA KRAUS Room: [address] IN ..#: [id number] Admission: 07/02/21 Attend Phys: Hawk Claros MD Discharge: Date of : 32 Report #: [id number] Total time spent providing critical care to this patient today exceeds 38 minutes. <ELECTRONICALLY SIGNED> By: Gabriel Dueñas MD 07/11/21 2217 1123 1840Gabriel Dueñas MD /nt
[2021-07-12] VITALS (62 sets, daily range): BP systolic 76–141; BP diastolic 47–67
[2021-07-12 00:11] LABS: URINE BILIRUBIN NEGATIVE (Negative); URINE BLOOD 1+ (Negative); URINE CLARITY CLEAR; URINE COLOR YELLOW; URINE GLUCOSE-RANDOM NEGATIVE (Negative); URINE KETONES NEGATIVE (Negative); URINE LEUKOCYTES NEGATIVE (Negative); URINE NITRITE NEGATIVE (Negative); URINE PROTEIN NEGATIVE (Negative); URINE UROBILINOGEN 0.2 E.U./dl (0.2-1.0)
[2021-07-12 00:22] LABS: SQUAMOUS 0-3 Few /LPF (0-3)
[2021-07-12 00:23] LABS: AMORPHOUS URATES Moderate /LPF (None Seen); COARSE GRANULAR CASTS 0-3 Few /LPF (None Seen); MUCUS 4-6 Moderate strn/LPF (None Seen); URINE RBC 3-10 Few /HPF (0-2); URINE WBC None Seen /HPF (0-5)
[2021-07-12 05:44] LABS: ABSOLUTE LYMPHOCYTES 0.2 thou/uL (0.8-5.3); ABSOLUTE MONOCYTES 0.2 thou/uL (0.0-1.2); ABSOLUTE NEUTROPHILS 10.2 thou/uL (1.6-8.1); BASOPHILS 0.2 %; HEMATOCRIT 33.1 % (42.0-52.0); HEMOGLOBIN 11.1 gm/dL (14.0-18.0); LYMPHOCYTES 1.9 %; MCH 32.2 pg (26.0-34.0); MCHC 33.5 g/dL (28.0-37.0); MCV 96.1 fL (80.0-100.0); MONOCYTES 1.6 %; NUCLEATED RBCS 0 /100WBC; PLATELET COUNT* 316 thou/uL (150-400); POLYS 96.3 %; RBC 3.44 mil/uL (4.50-6.00); RDW-CV 14.2 % (10.5-14.5); WBC 10.6 thou/uL (4.0-11.0)
[2021-07-12 06:05] LABS: ALBUMIN 2.7 g/dL (3.4-5.0); CALCIUM 8.2 mg/dL (8.5-10.1); CREATININE 2.5 mg/dL (0.6-1.3); MAGNESIUM 3.2 mg/dL (1.8-2.4); POTASSIUM 3.9 mmol/L (3.5-5.1); TOTAL BILIRUBIN 0.7 mg/dL (<0.1-1.0); TOTAL PROTEIN 5.8 g/dL (6.4-8.2)
[2021-07-12 09:35] LABS: BE -3.8 mmol/L (-2 to +3); PCO2 39.2 mmHg (35.0-45.0); PO2 88.2 mmHg (75.0-100.0); pH 7.355 (7.340-7.450)
[2021-07-12 13:11] LABS: LIPASE 927 U/L (73-393); TRIGLYCERIDE 111 mg/dL (<150)
[2021-07-13] VITALS (72 sets, daily range): BP systolic 97–135; BP diastolic 47–71
[2021-07-13 05:24] LABS: ABSOLUTE BASOPHILS 0.1 thou/uL (0.0-0.2); ABSOLUTE LYMPHOCYTES 0.2 thou/uL (0.8-5.3); ABSOLUTE MONOCYTES 0.2 thou/uL (0.0-1.2); ABSOLUTE NEUTROPHILS 9.2 thou/uL (1.6-8.1); BASOPHILS 1.2 %; HEMATOCRIT 33.5 % (42.0-52.0); HEMOGLOBIN 11.2 gm/dL (14.0-18.0); LYMPHOCYTES 2.1 %; MCHC 33.3 g/dL (28.0-37.0); MCV 96.1 fL (80.0-100.0); MONOCYTES 1.9 %; NUCLEATED RBCS 0 /100WBC; PLATELET COUNT* 309 thou/uL (150-400); POLYS 94.8 %; RBC 3.49 mil/uL (4.50-6.00); RDW-CV 14.3 % (10.5-14.5); WBC 9.7 thou/uL (4.0-11.0)
[2021-07-13 05:50] LABS: ALBUMIN 2.4 g/dL (3.4-5.0); CALCIUM 8.2 mg/dL (8.5-10.1); CREATININE 2.5 mg/dL (0.6-1.3); MAGNESIUM 3.2 mg/dL (1.8-2.4); PHOSPHORUS* 4.1 mg/dL (2.5-4.9); TOTAL BILIRUBIN 0.5 mg/dL (<0.1-1.0); TOTAL PROTEIN 5.5 g/dL (6.4-8.2)
[2021-07-13 08:59] LABS: BE -5.3 mmol/L (-2 to +3); PCO2 35.1 mmHg (35.0-45.0); PO2 89.1 mmHg (75.0-100.0); pH 7.361 (7.340-7.450)
[2021-07-14] VITALS (53 sets, daily range): BP systolic 106–135; BP diastolic 47–67
[2021-07-14 03:00] LABS: HEMATOCRIT 35.8 % (42.0-52.0); MCHC 33.5 g/dL (28.0-37.0); MCV 95.4 fL (80.0-100.0); MPV 8.3 fl. (7.2-11.1); NUCLEATED RBCS 0 /100WBC; PLATELET COUNT* 304 thou/uL (150-400); RBC 3.76 mil/uL (4.50-6.00); RDW-CV 14.3 % (10.5-14.5); WBC 10.5 thou/uL (4.0-11.0)
[2021-07-14 03:22] LABS: ALBUMIN 2.5 g/dL (3.4-5.0); CALCIUM 8.5 mg/dL (8.5-10.1); CREATININE 2.2 mg/dL (0.6-1.3); MAGNESIUM 3.3 mg/dL (1.8-2.4); TOTAL BILIRUBIN 0.6 mg/dL (<0.1-1.0); TOTAL PROTEIN 5.7 g/dL (6.4-8.2)
[2021-07-14 06:18] LABS: ABSOLUTE LYMPHOCYTES 0.4 thou/uL (0.8-5.3); ABSOLUTE MONOCYTES 0.1 thou/uL (0.0-1.2); PLATELET ESTIMATE ADEQUATE
[2021-07-15] VITALS (47 sets, daily range): BP systolic 104–152; BP diastolic 41–70
[2021-07-15 04:51] LABS: ALBUMIN 2.3 g/dL (3.4-5.0); CALCIUM 8.5 mg/dL (8.5-10.1); CREATININE 2.1 mg/dL (0.6-1.3); PHOSPHORUS* 3.8 mg/dL (2.5-4.9); POTASSIUM 4.1 mmol/L (3.5-5.1)
[2021-07-16] VITALS (68 sets, daily range): BP systolic 95–196; BP diastolic 27–84
[2021-07-16 05:04] LABS: BE -3.8 mmol/L (-2 to +3); PCO2 29.7 mmHg (35.0-45.0); pH 7.429 (7.340-7.450)
[2021-07-16 05:12] LABS: MCH 31.9 pg (26.0-34.0); MCHC 33.4 g/dL (28.0-37.0); MCV 95.3 fL (80.0-100.0); MPV 9.1 fl. (7.2-11.1); NUCLEATED RBCS 0 /100WBC; PLATELET COUNT* 272 thou/uL (150-400); RBC 3.78 mil/uL (4.50-6.00); RDW-CV 14.5 % (10.5-14.5); WBC 22.2 thou/uL (4.0-11.0)
[2021-07-16 05:22] LABS: INR 1.3; PROTIME 13.5 Seconds (9.20-11.50)
[2021-07-16 05:38] LABS: ALBUMIN 2.1 g/dL (3.4-5.0); CALCIUM 8.4 mg/dL (8.5-10.1); CREATININE 2.2 mg/dL (0.6-1.3); POTASSIUM 4.4 mmol/L (3.5-5.1); TOTAL BILIRUBIN 0.6 mg/dL (<0.1-1.0); TOTAL PROTEIN 5.2 g/dL (6.4-8.2)
[2021-07-16 06:20] LABS: PO2 57.1 mmHg (75.0-100.0)
[2021-07-16 08:17] LABS: ABSOLUTE MONOCYTES 0.2 thou/uL (0.0-1.2)
[2021-07-16 08:19] LABS: PLATELET ESTIMATE ADEQUATE
[2021-07-17] VITALS (68 sets, daily range): BP systolic 97–141; BP diastolic 42–63
[2021-07-17 16:58] LABS: HEMOGLOBIN 10.6 gm/dL (14.0-18.0); MCH 31.7 pg (26.0-34.0); MCHC 33.1 g/dL (28.0-37.0); MCV 95.9 fL (80.0-100.0); MPV 8.6 fl. (7.2-11.1); NUCLEATED RBCS 0 /100WBC; PLATELET COUNT* 206 thou/uL (150-400); RBC 3.34 mil/uL (4.50-6.00); RDW-CV 15.4 % (10.5-14.5); WBC 14.3 thou/uL (4.0-11.0)
[2021-07-17 17:57] LABS: ABSOLUTE LYMPHOCYTES 0.3 thou/uL (0.8-5.3); ABSOLUTE MONOCYTES 0.4 thou/uL (0.0-1.2); ABSOLUTE NEUTROPHILS 13.6 thou/uL (1.6-8.1); PLATELET ESTIMATE ADEQUATE
[2021-07-18] VITALS (27 sets, daily range): BP systolic 105–152; BP diastolic 43–80
[2021-07-18 05:05] LABS: ABSOLUTE LYMPHOCYTES 0.2 thou/uL (0.8-5.3); ABSOLUTE NEUTROPHILS 13.5 thou/uL (1.6-8.1); EOSINOPHILS 0.1 %; HEMATOCRIT 34.3 % (42.0-52.0); HEMOGLOBIN 11.3 gm/dL (14.0-18.0); LYMPHOCYTES 1.4 %; MCH 31.8 pg (26.0-34.0); MCV 96.4 fL (80.0-100.0); MONOCYTES 0.4 %; MPV 9.1 fl. (7.2-11.1); NUCLEATED RBCS 0 /100WBC; PLATELET COUNT* 196 thou/uL (150-400); POLYS 98.1 %; RBC 3.55 mil/uL (4.50-6.00); RDW-CV 15.2 % (10.5-14.5); WBC 13.8 thou/uL (4.0-11.0)
[2021-07-18 05:27] LABS: ALBUMIN 1.9 g/dL (3.4-5.0); CALCIUM 8.2 mg/dL (8.5-10.1); CREATININE 2.1 mg/dL (0.6-1.3); POTASSIUM 5.1 mmol/L (3.5-5.1); TOTAL BILIRUBIN 0.6 mg/dL (<0.1-1.0); TOTAL PROTEIN 5.2 g/dL (6.4-8.2)
[2021-07-19] VITALS: BP 124/53
[2021-07-19 01:00] VITALS: BP 106/43
[2021-07-19 02:00] VITALS: BP 106/42
[2021-07-19 03:00] VITALS: BP 112/47
[2021-07-19 04:00] VITALS: BP 109/40
[2021-07-19 05:00] VITALS: BP 99/37
[2021-07-20] VITALS (17 sets, daily range): BP systolic 96–160; BP diastolic 37–68
[2021-07-20 11:11] LABS: HEMATOCRIT 35.8 % (42.0-52.0); HEMOGLOBIN 11.5 gm/dL (14.0-18.0); MCHC 32.2 g/dL (28.0-37.0); MCV 96.1 fL (80.0-100.0); MPV 9.3 fl. (7.2-11.1); NUCLEATED RBCS 0 /100WBC; PLATELET COUNT* 196 thou/uL (150-400); RBC 3.72 mil/uL (4.50-6.00); RDW-CV 15.1 % (10.5-14.5); WBC 27.6 thou/uL (4.0-11.0)
[2021-07-20 11:42] LABS: ABSOLUTE LYMPHOCYTES 1.4 thou/uL (0.8-5.3); ABSOLUTE MONOCYTES 0.6 thou/uL (0.0-1.2); ABSOLUTE NEUTROPHILS 25.7 thou/uL (1.6-8.1); PLATELET ESTIMATE ADEQUATE
[2021-07-20 14:15] LABS: BE -7.5 mmol/L (-2 to +3); PCO2 31.9 mmHg (35.0-45.0); PO2 88.3 mmHg (75.0-100.0); pH 7.346 (7.340-7.450)
[2021-07-21] VITALS (27 sets, daily range): BP systolic 83–197; BP diastolic 29–61
[2021-07-22] VITALS (19 sets, daily range): BP systolic 84–166; BP diastolic 35–59
[2021-07-22 04:39] LABS: ABSOLUTE BASOPHILS 0.1 thou/uL (0.0-0.2); ABSOLUTE LYMPHOCYTES 0.2 thou/uL (0.8-5.3); ABSOLUTE MONOCYTES 0.1 thou/uL (0.0-1.2); ABSOLUTE NEUTROPHILS 29.9 thou/uL (1.6-8.1); BASOPHILS 0.3 %; HEMATOCRIT 32.7 % (42.0-52.0); HEMOGLOBIN 10.9 gm/dL (14.0-18.0); LYMPHOCYTES 0.8 %; MCH 31.1 pg (26.0-34.0); MCHC 33.4 g/dL (28.0-37.0); MCV 92.9 fL (80.0-100.0); MONOCYTES 0.2 %; MPV 10.1 fl. (7.2-11.1); NUCLEATED RBCS 0 /100WBC; PLATELET COUNT* 138 thou/uL (150-400); POLYS 98.7 %; RBC 3.52 mil/uL (4.50-6.00); RDW-CV 14.8 % (10.5-14.5); WBC 30.3 thou/uL (4.0-11.0)
[2021-07-22 04:53] LABS: ALBUMIN 1.6 g/dL (3.4-5.0); APTT 27.3 Seconds (25.0-31.3); CALCIUM 7.9 mg/dL (8.5-10.1); CREATININE 3.4 mg/dL (0.6-1.3); INR 1.3; PROTIME 12.8 Seconds (9.20-11.50); TOTAL BILIRUBIN 0.7 mg/dL (<0.1-1.0); TOTAL PROTEIN 4.8 g/dL (6.4-8.2)
[2021-07-22 05:43] LABS: POTASSIUM 6.8 mmol/L (3.5-5.1)
--- NOTE | 2021-07-24 17:02 | CON ---
[address] [address] CONSULTATION Name: TANYA KRAUS Room: [address] IN M.R.#: [id number] Admission: 07/02/21 Attend Phys: Hawk Claros MD Discharge: 07/22/21 Date of : 32 Report #: [id number] THIS REPORT FOR: cc: Prosper Tuttle MD [facility] Prosper Tuttle MD [facility] José Luis Hodge DO ~ cc: Hawk Claros MD, Prosper Tuttle MD [facility] DATE OF CONSULTATION: 07/21/2021 REFERRING PHYSICIAN: Hawk Claros MD REASON FOR CONSULTATION: Coffee-ground material in OG tube. IMPRESSION: 1. Coffee-ground material in orogastric tube -- suspect erosive esophagitis versus gastritis versus duodenal ulcer. 2. Respiratory failure secondary to COVID, requiring mechanical ventilation. 3. Acute renal failure superimposed on chronic kidney disease. 4. Bilateral pulmonary emboli, requiring apixaban. 5. Atrial fibrillation with controlled ventricular response. 6. Unresponsive nature with CT and EEG currently being done today. RECOMMENDATIONS: 1. The patient's hemoglobin is stable and his vital signs are stable as well. We will hold off on endoscopic evaluation until tomorrow morning. In the interim, we will switch him over from IV Protonix twice daily to an IV Protonix drip. 2. I have discussed the patient's case with Dr. Clifford Crawford, who plans on talking with the patient's family today to determine how much for they want to go with his treatment. 3. As long as he does not have any hemodynamically significant bleeding overnight, we will proceed with an upper endoscopy tomorrow morning at around 10:30 unless I hear back from Dr. Crawford and the patient's family has decided on comfort care. I have discussed the plans with the patient's nurse as well in the ICU. HISTORY OF PRESENT ILLNESS: The patient is an 89-year-old white male who has been here in the hospital since 12/31/2020 for COVID pneumonia. He has had multiple complications including mechanical ventilation, pulmonary emboli, acute renal failure and atrial fibrillation. He is currently on the ventilator and has an OG tube in place, which is draining some coffee ground/mild blood within the same. There is not any overt hemodynamically significant bleeding. The patient is currently on Protonix 40 mg every 12 hours. He is currently not being fed as he had some issues with high residuals. [place] [address] CONSULTATION Name: EFRATANYA Lamar Room: [address]#: [id number] Admission: 07/02/21 Attend Phys: Hawk Claros MD Discharge: 07/22/21 Date of : 32 Report #: [id number] any history whatsoever and has not had any issues that we are aware of regarding his GI tract in the past. He has a history of colon cancer for which he underwent surgery back in 04/2008 with left hemicolectomy with primary anastomosis. His tumor was stage I and he did not require any adjuvant chemotherapy. He was followed for several years and his last colonoscopy was performed in 2012 and was unremarkable. He has not been seen in our office since that time. He is currently not having any issues ____ lower GI tract though his abdomen is more distended than it should be. ALLERGIES: HIS ALLERGIES ARE ADHESIVE TAPE. HOME MEDICATIONS: Include enteric-coated aspirin and Centrum. CURRENT MEDICATIONS: Include methylnaltrexone bromide or Relistor, metoclopramide 10 every 6 hours, pantoprazole 40 mg IV every 12 hours, apixaban, dexmedetomidine, digoxin, insulin, Versed, norepinephrine, metoprolol, diltiazem, ascorbic acid, vitamin C, aspirin and ipratropium bromide. PAST MEDICAL HISTORY: Significant for COPD, previous bypass surgery, pacemaker placement, previous history of colon cancer as well as mentioned above. SOCIAL HISTORY: The patient has extensive smoking history. Alcohol history not known. PHYSICAL EXAMINATION: GENERAL: Revealed an ill-appearing 89-year-old gentleman who is currently on the ventilator. CARDIOPULMONARY: Revealed a regular rate and rhythm. LUNGS: Clear. ABDOMEN: Soft and distended. No rebound or guarding noted. LABORATORY DATA: Revealed a white count of 27.6, hemoglobin 11.5, platelet count 196,000. MCV is 96.1, RDW is 13.1. His sodium 148, potassium 5.1, chloride 118, bicarbonate 20, BUN 112, creatinine is 2.1, total bilirubin 0.6, alkaline phosphatase 136, AST 50, ALT 141. His albumin is 1.9. DISCUSSION: At the present time, the patient has got some abnormal fluid inside of his OG tube. We will proceed with EGD if family wants to pursue aggressive majors, otherwise continue with Protonix at this time. <ELECTRONICALLY SIGNED> By: José Luis Hodge DO 07/24/21 1702 1052 1201José Luis Hodge DO /nt
== END 2021-07-22 16:25 | DRG 870 ==
LOC: M.ERS 01:31 → M.ORTHSURG 02:51 → M.ICU 02:51 → M.TBA-ER 02:51 → M.ORTHSURG 07:00 → M.ICU 07-08 15:00
PROVIDERS: Emergency Medicine; Internal Medicine; Internal Medicine Cardiovascular Disease; Internal Medicine Critical Care Medicine; Internal Medicine Gastroenterology; Internal Medicine Nephrology; Nurse Practitioner Family; Pediatrics; ADMIT Internal Medicine; ATTEND Internal Medicine
DX: A41.89 Other specified sepsis (principal); U07.1 COVID-19; J96.01 Acute respiratory failure with hypoxia; J12.82 Pneumonia due to coronavirus disease 2019; I26.99 Other pulmonary embolism without acute cor pulmonale; E44.0 Moderate protein-calorie malnutrition; N17.9 Acute kidney failure, unspecified; I46.9 Cardiac arrest, cause unspecified; I49.5 Sick sinus syndrome; I48.91 Unspecified atrial fibrillation; I25.10 Atherosclerotic heart disease of native coronary artery without angina pectoris; E88.09 Other disorders of plasma-protein metabolism, not elsewhere classified; Z66 Do not resuscitate; I95.9 Hypotension, unspecified; Z79.899 Other long term (current) drug therapy; Z68.31 Body mass index [BMI] 31.0-31.9, adult; Z95.1 Presence of aortocoronary bypass graft; Z85.038 Personal history of other malignant neoplasm of large intestine; Z86.718 Personal history of other venous thrombosis and embolism; Z87.891 Personal history of nicotine dependence; Z88.8 Allergy status to other drugs, medicaments and biological substances; Z95.0 Presence of cardiac pacemaker; Z91.14 Patient's other noncompliance with medication regimen; Z79.82 Long term (current) use of aspirin; Z51.5 Encounter for palliative care